=== PATIENT | female | born 1985 | race Caucasian/White ===

== ENCOUNTER → 2017-09-02 | Outpatient (CLI) | payer BC ==
--- NOTE | 2017-09-02 14:38 | KCIC ---
EXAM: Obstetrics sonogram. HISTORY: Size and dates discrepancy. TECHNIQUE: Sonographic imaging of a gravid uterus was performed. COMPARISON: None. FINDINGS: There is a single intrauterine fetus in transverse variable presentation with a heart rate of 139 bpm. There is an anterior placenta without evidence of postoperative review. The amniotic fluid index is low normal at 8.1 cm. The heart, stomach, kidneys, bladder, spine, brain and facial profile are unremarkable. There is a three-vessel umbilical cord. The biparietal diameter is 4.51 cm, corresponding with 19 weeks and 4 days. The head circumference is 16.36 cm, corresponding with 19 weeks and 1 day. The abdominal circumference is 14.2 cm, corresponding with 19 weeks and 4 days. The femoral length is 2.92 cm, corresponding with 19 weeks and 2 days. The estimated gestational age based on combined ultrasound measurements is 19 weeks and 3 days. The estimated weight is 290 g. The head circumference to abdominal circumference ratio is 1.15. The cervix is long and closed, measuring 6.4 cm. IMPRESSION: Single intrauterine fetus with an estimated gestational age based on ultrasound measurements of 19 weeks and 3 days and heart rate of 139 bpm. The MEHRAN based on ultrasound findings is 01/24/2018. The MEHRAN based on LMP is 01/29/2018. Electronically signed by: Shonna Fleming MD (09/02/2017 2:35 PM) [email or web address]
== END | disposition home or self-care (01) ==
LOC: KCIC US 13:12
PROVIDERS: ATTEND Obstetrics & Gynecology
DX: O26.842 Uterine size-date discrepancy, second trimester (principal); Z3A.19 19 weeks gestation of pregnancy
CPT/HCPCS: 76805